=== PATIENT | female | born 1995 | race Caucasian/White ===

== ENCOUNTER 2017-10-15 19:37 | Emergency (ER) | payer OTHER ==
[~2017-10-15] VITALS: Ht 162.6 cm; Wt 100.7 kg
[2017-10-15 19:45] VITALS: Ht 162.6 cm; Wt 100.7 kg
[2017-10-15 21:14] VITALS: BP 133/82
== END 2017-10-15 21:14 | disposition home or self-care (01) ==
LOC: ED 19:37
DX: L03.032 Cellulitis of left toe (principal); I10 Essential (primary) hypertension

== ENCOUNTER 2017-10-28 10:27 | Emergency (ER) | payer OTHER ==
[~2017-10-28] VITALS: Ht 165.1 cm; Wt 98.4 kg
[2017-10-28 11:12] VITALS: BP 139/85
== END 2017-10-28 11:12 | disposition home or self-care (01) ==
LOC: ED 10:27
DX: N76.0 Acute vaginitis (principal)